=== PATIENT | female | born 2000 | race Caucasian/White ===

== ENCOUNTER 2020-06-28 20:56 | Day surgery (SDC) | payer OTHER ==
[2020-06-28 21:28] VITALS: BMI 30.3
[2020-06-28] MEDS ORDERED: hydrALAZINE 20 MG/ML VIAL SLOW IVP PRN (22:07)
== END 2020-06-28 23:31 | disposition home or self-care (01) ==
LOC: CSHLD/OP 20:56
PROVIDERS: ATTEND Family Medicine
DX: O36.8130 Decreased fetal movements, third trimester, not applicable or unspecified (principal); O41.03X0 Oligohydramnios, third trimester, not applicable or unspecified; Z3A.36 36 weeks gestation of pregnancy
CPT/HCPCS: 76819; 99282

== ENCOUNTER 2020-07-08 13:06 | Day surgery (SDC) | payer OTHER ==
[2020-07-08 14:35] LABS: Amnisure Test No Membranes Rupture (No Rupture)
[2020-07-08 14:38] VITALS: BMI 25.0
[2020-07-08] MEDS ORDERED: hydrALAZINE 20 MG/ML VIAL SLOW IVP PRN (15:01)
[2020-07-08 16:06] LABS: Amnisure Test No Membranes Rupture (No Rupture)
== END 2020-07-08 16:45 | disposition home or self-care (01) ==
LOC: CSHLD/OP 13:06
PROVIDERS: ATTEND Family Medicine
DX: O99.891 Other specified diseases and conditions complicating pregnancy (principal); N89.8 Other specified noninflammatory disorders of vagina; Z3A.38 38 weeks gestation of pregnancy; Z79.82 Long term (current) use of aspirin
CPT/HCPCS: 84112; 99283

== ENCOUNTER 2020-07-17 08:29 | Outpatient (CLI) | payer OTHER ==
[2020-07-17 18:44] LABS: SARS-CoV-2 PCR by NAA Not Detected (NotDetected)
== END 2020-07-17 08:30 | disposition home or self-care (01) ==
LOC: CSHLAB 08:29
PROVIDERS: ATTEND Family Medicine
DX: Z20.822 Contact with and (suspected) exposure to COVID-19 (principal)
CPT/HCPCS: 87635; U0003; U0005

== ENCOUNTER 2020-07-20 18:00 | Inpatient (IN) | payer OTHER ==
[~2020-07-20 18:00] MED LIST: Bupivacaine 0.25% HCL 30 ML VIAL ONE; Bupivacaine PF 0.5% 30 ML VIAL ONE
[2020-07-20] MEDS ORDERED: HYDROcodone/Acetaminophen 5/325 mg Tablet PO PRN (19:25)
[2020-07-20] MEDS ORDERED: Ondansetron PF 4 MG/2 ML Vial IVP PRN (19:25)
[2020-07-20] MEDS ORDERED: Diphenoxylate HCl/Atropine Tablet PO PRN (19:25)
[2020-07-20] MEDS ORDERED: hydrALAZINE 20 MG/ML VIAL SLOW IVP PRN (19:25)
[2020-07-20] MEDS ORDERED: Carboprost 250 MCG/ML AMP IM PRN (19:25)
[2020-07-20] MEDS ORDERED: Lidocaine 1% (PF) 30 ML VIAL SC PRN (19:25)
[2020-07-20] MEDS ORDERED: Methylergonovine 0.2 MG/ML VIAL IM PRN (19:25)
[2020-07-20] MEDS ORDERED: Ibuprofen 800 MG TAB PO PRN (19:25)
[2020-07-20] MEDS ORDERED: Promethazine HCl 25 MG/ML VIAL IM PRN (19:25)
[2020-07-20] MEDS ORDERED: Misoprostol 200 MCG TAB PR PRN (19:25)
[2020-07-20] MEDS ORDERED: NS w/ Oxytocin 30 units 1,000 ML IV PRN (19:36)
[2020-07-20] MEDS ORDERED: NS w/ Oxytocin 30 units 500 ML IVPB SCH ×2 (19:45)
[2020-07-20 19:54] VITALS: BMI 30.8
[2020-07-20] MEDS: Misoprostol 100 MCG TAB VAG SCH ×2 (20:10→23:45)
[2020-07-20 20:15] LABS: Hemoglobin 11.3 g/dL (12.0-15.5); Mean Corpuscular HGB CONC 34.5 g/dL (32.0-36.0); Mean Corpuscular Hemoglobin 30.6 pg (27.0-33.0); Mean Corpuscular Volume 88.9 fl (81.6-98.3); Mean Platelet Volume 10.7 fl (7.4-10.4); Platelet Count 308 10x3/uL (150-450); RBC Distribution Width 13.6 % (11.5-14.5); Red Blood Cell (RBC) Count 3.69 10x6/uL (3.90-5.03); White Blood Cell (WBC) Count 8.7 10x3/uL (3.5-10.5)
[2020-07-20 20:49] LABS: Hep B Surf Ag Non-Reactive S/CO (NonReactive); Syphilis Antibody Nonreactive (Nonreactive); Syphilis Antibody Index 0.01 S/CO (<1.00 Non-Reactive)
[2020-07-20 20:50] LABS: HBSAg Index 0.17 S/CO (0-0.99)
[2020-07-21] MEDS: Misoprostol 100 MCG TAB VAG SCH (03:30)
[2020-07-21] MEDS: Butorphanol Tartrate 1 MG/ML VIAL SLOW IVP PRN ×2 (03:43→08:06)
[2020-07-21] MEDS: Lactated Ringer's 1,000 ML IV SCH ×4 (08:08→16:58)
[2020-07-21] MEDS ORDERED: Fentanyl 4 mcg/Bup 0.1% Cadd 100 ML ONE ×2 (08:56→16:02)
[2020-07-21] MEDS ORDERED: Promethazine HCl 25 MG/ML VIAL IM PRN ×2 (14:45→21:57)
[2020-07-21] MEDS ORDERED: Acetaminophen 325 MG TAB PO PRN (14:45)
[2020-07-21] MEDS ORDERED: Fentanyl 4 mcg/Bupivacaine 0.1% Cassette 100 ML EPIDURAL SCH (14:45)
[2020-07-21] MEDS ORDERED: Communication Order-Pharmacy FS SCH (14:45)
[2020-07-21] MEDS ORDERED: Lactated Ringer's 500 ML IV PRN (14:45)
[2020-07-21] MEDS ORDERED: Naloxone HCl 0.4 mg/ml Vial IVP PRN ×2 (14:45)
[2020-07-21] MEDS ORDERED: Ondansetron PF 4 MG/2 ML Vial IVP PRN ×2 (14:45→21:57)
[2020-07-21] MEDS ORDERED: diphenhydrAMINE 50 MG/ML VIAL IVP PRN (14:45)
[2020-07-21] MEDS ORDERED: Fentanyl 4 mcg/Bup 0.1667% 200 ML CADD EPIDURAL SCH (16:30)
[2020-07-21] MEDS ORDERED: Hydrocerin (Eucerin) Cream 120 gm Jar TOP PRN (16:32)
[2020-07-21] MEDS ORDERED: ePHEDrine Sulfate 50 MG/10 ML VIAL SLOW IVP PRN (16:33)
[2020-07-21] MEDS ORDERED: Milk Of Magnesia 30 ML UDCUP PO PRN (21:57)
[2020-07-21] MEDS ORDERED: Lanolin Ointment 7 GM TUBE TOP PRN (21:57)
[2020-07-21] MEDS ORDERED: HYDROcodone/Acetaminophen 5/325 mg Tablet PO PRN ×2 (21:57)
[2020-07-21] MEDS ORDERED: hydrALAZINE 20 MG/ML VIAL SLOW IVP PRN (21:57)
[2020-07-21] MEDS ORDERED: Bisacodyl 10 MG SUPP PR PRN (21:57)
[2020-07-21] MEDS ORDERED: diphenhydrAMINE 25 MG CAP PO PRN (21:57)
[2020-07-21] MEDS ORDERED: Benzocaine-Menthol 82.5 ML CAN TOP PRN (21:57)
[2020-07-22] MEDS: Misoprostol 100 MCG TAB VAG SCH (01:53)
[2020-07-22] MEDS: Ibuprofen 800 MG TAB PO SCH ×4 (01:54→21:10)
[2020-07-22] MEDS: Ferrous Sulfate 325 MG TAB PO SCH ×2 (07:46→17:33)
[2020-07-22] MEDS ORDERED: Adacel (T-DAP) 0.5 ML SYRINGE IM ONE (09:00)
[2020-07-22] MEDS: Prenatal Vitamin 1 TAB PO SCH (09:20)
[2020-07-22] MEDS: Docusate Calcium (SURFAK) 240 MG CAP PO SCH ×2 (09:20→21:10)
[2020-07-22] MEDS ORDERED: Simethicone Chewable 80 MG TAB PO PRN ×2 (12:12→14:47)
[2020-07-22] MEDS ORDERED: Sodium Chloride 0.9% 10 ML ONE (12:41)
[2020-07-23] MEDS: Ibuprofen 800 MG TAB PO SCH ×2 (05:43→13:44)
[2020-07-23 07:56] VITALS: BP 117/71; TEMP 98.8
[2020-07-23] MEDS: Prenatal Vitamin 1 TAB PO SCH (09:27)
[2020-07-23] MEDS: Docusate Calcium (SURFAK) 240 MG CAP PO SCH (09:27)
[2020-07-23] MEDS: Ferrous Sulfate 325 MG TAB PO SCH ×2 (09:28→13:53)
== END 2020-07-23 19:00 | disposition home or self-care (01) | DRG 807 ==
LOC: CSHLD 18:51 → CSHPP 07-21 23:20
PROVIDERS: ADMIT Family Medicine; ATTEND Family Medicine
PROC: 4A0HXCZ Measurement of Products of Conception, Cardiac Rate, External Approach (ICD-10-PCS; principal; 2020-07-21)
PROC: 10E0XZZ Delivery of Products of Conception, External Approach (ICD-10-PCS; 2020-07-21)
DX: O76 Abnormality in fetal heart rate and rhythm complicating labor and delivery (principal); Z37.0 Single live birth; Z3A.40 40 weeks gestation of pregnancy; O70.0 First degree perineal laceration during delivery
CPT/HCPCS: 36415; 51702; 85027; 86780; 86850; 86900; 86901; 87340; J0595; J2405; J2590; S0020

== ENCOUNTER 2023-05-02 13:48 | Day surgery (SDC) | payer OTHER ==
[2023-05-02 14:47] VITALS: BMI 33.0
== END 2023-05-02 15:27 | disposition home or self-care (01) ==
LOC: CSHLD/OP 13:48
PROVIDERS: ATTEND Family Medicine
DX: O47.1 False labor at or after 37 completed weeks of gestation (principal); Z91.040 Latex allergy status; Z79.899 Other long term (current) drug therapy